=== PATIENT | female | born 1955 | race Hispanic/Latino ===

== ENCOUNTER → 2022-08-15 | Outpatient (CLI) | payer OTHER | END | disposition home or self-care (01) | LOC: RAH 16:08 | PROVIDERS: ATTEND Internal Medicine | DX: I08.3 Combined rheumatic disorders of mitral, aortic and tricuspid valves (principal); M34.9 Systemic sclerosis, unspecified; I10 Essential (primary) hypertension; E11.9 Type 2 diabetes mellitus without complications; E78.5 Hyperlipidemia, unspecified | CPT/HCPCS: 93306 ==

== ENCOUNTER → 2022-08-28 | Outpatient (CLI) | payer OTHER | END | disposition home or self-care (01) | LOC: RAH 12:21 | PROVIDERS: ATTEND Internal Medicine | DX: J47.9 Bronchiectasis, uncomplicated (principal); M34.9 Systemic sclerosis, unspecified | CPT/HCPCS: 71250 ==